=== PATIENT | female | born 1985 | race Two or more races ===

== ENCOUNTER 2023-03-17 18:29 | Emergency (ER) | payer SELFPAY ==
[2023-03-17 18:36] VITALS: BP 135/80; PULSE 83; RESP 18; TEMP 36.5; O2SAT 98; BMI 42.4
--- NOTE | 2023-03-17 18:40 | ED_ITS ---
HPI - General Adult General Time Seen by Provider: 18:40 Date Seen: 03/17/23 Chief complaint: Nausea/Vomiting Stated complaint: Vomiting, heartburn, possible medication reaction Time Seen by Provider: 03/17/23 18:38 History of Present Illness HPI narrative: 37-year-old female accompanied to the ER today by her for evaluation of ongoing nausea, heartburn, concern for dehydration. She is using wegovy weight loss. She does not have a diagnosis of diabetes. Yesterday she increased her dose from 0.5 mg up to 5 mg injected per week. Overnight last night she developed significant nausea and vomiting. She has had multiple episodes of nonbilious, nonbloody emesis since then. She had been seen in the [facility] emergency room in [place] this morning. She received IV Zofran which was ineffective and then was treated with a different IV antiemetic (possibly Compazine?) along with Benadryl and had improved nausea. She was able to discharge home. She also received 2 L of IV fluid while in the ER. She had labs that showed a white count of 13. Blood sugar was 198. Other electrolytes and LFTs were normal. She was given a prescription for Zofran ODT. Throughout the afternoon she has been using the Zofran but finding it to be ineffective. She has had multiple episodes of vomiting. Some of vomit has been orange 10s but no obvious blood. No diarrhea. No fever. She is having bad heartburn. She feels worn out and exhausted because of all the nausea. No fever. No other antecedent infection symptoms. Related Data Home Medications Medication Instructions Recorded Confirmed omeprazole 03/17/23 Previous Rx's Medication Instructions Recorded prochlorperazine maleate 10 mg 10 mg PO TID PRN #10 tabs 03/17/23 tablet (Compazine) Allergies Allergy/AdvReac Type Severity Reaction Status Date / Time No Known Drug Allergies Allergy Verified 03/17/23 21:00 PFSH PFS Social History Non-prescribed substance use: denies use Exam Narrative: Exam Narrative: Constitutional: Appears well-developed and well-nourished. Alert. Conversant, but uncomfortable. Overall, Non toxic. HENT: Head: Atraumatic. Nose: Nose normal. Mouth/Throat: Oral mucosa is clear and moist. no trismus. Pharynx normal. Tonsils symmetric. No tonsillar enlargement, erythema, or exudate. Eyes: Conjunctivae normal. EOM normal. Pupils equal, round, and reactive to light. No scleral icterus. Neck: Normal range of motion. Neck supple. No tracheal deviation present. Cardiovascular: Normal rate, regular rhythm. No gallop. No friction rub. No murmur heard. Symmetric radial artery pulses Pulmonary/Chest: Effort normal. No stridor. No respiratory distress. No wheezes. No rales. No rhonchi . No tenderness. Abdominal: Soft. Bowel sounds normal. No distension. No mass. Epigastric> right lower quadrant> left-sided abdominal tenderness. No CVA tenderness. No right upper quadrant tenderness. No Lyon sign. No rebound. No guarding. Musculoskeletal: RUE: Normal range of motion. No tenderness. No deformity LUE: Normal range of motion. No tenderness. No deformity RLE: Normal range of motion. No edema. No tenderness. No deformity LLE: Normal range of motion. No edema. No tenderness. No deformity Neurological: Alert and oriented to person, place, and time. Normal strength. CN II-VII intact. No sensory deficit. GCS eye subscore is 4. GCS verbal subscore is 5. GCS motor subscore is 6. Normal coordination Skin: Skin is warm and dry. No rash noted. No pallor. Normal capillary refill. Psychiatric: Normal mood. Normal affect. Const: Vital Signs, click to edit/add: Vital Signs - 24 hr 03/17/23 18:36 03/17/23 21:00 Temperature 97.7 F Pulse Rate [Right Pulse Oximeter] 83 Respiratory Rate 18 Blood Pressure [Ri ght Upper Arm] 135/80 Pulse Oximetry 98 99 Oxygen Delivery Me thod Room Air Course Course ED Course: Recheck-feeling better after antiemetic here in the ER. White count is elevated. Will order CT. Reevaluation(s) Reevaluation #1: Recheck-discussed CT results with patient and family. They are eager for discharge home. Vital Signs Vital signs: Initial Vital Signs Temperature 97.7 F 03/17/23 18:36 Temperature Source Temporal Artery Scan 03/17/23 18:36 Pulse Rate 83 03/17/23 18:36 Respiratory Rate 18 03/17/23 18:36 Blood Pressure 135/80 03/17/23 18:36 Blood Pressure Mean 98 03/17/23 18:36 Blood Pressure Position Sitting 03/17/23 18:36 Pulse Oximetry 98 03/17/23 18:36 Oxygen Delivery Method Room Air 03/17/23 18:36 Vital Signs Temperature 97.7 F 03/17/23 18:36 Pulse Rate 83 03/17/23 18:36 Respiratory Rate 18 03/17/23 18:36 Blood Pressure 135/80 03/17/23 18:36 Pulse Oximetry 98 03/17/23 18:36 Oxygen Delivery Method Room Air 03/17/23 18:36 Temperature 97.7 F 03/17/23 18:36 Pulse Rate 83 03/17/23 18:36 Respiratory Rate 18 03/17/23 18:36 Blood Pressure 135/80 03/17/23 18:36 Pulse Oximetry 99 03/17/23 21:00 Oxygen Delivery Method Room Air 03/17/23 18:36 Medical Decision Making MDM Narrative Medical decision making narrative: Presented to the Emergency Department with protracted nausea and vomiting, heartburn, abdominal pain. Symptoms started overnight last night after she increased her dose of Wegovy (which she started recently for weight loss). Sheet she had been seen in the [place] [address] ER in [place] earlier this morning and received 2 L IV fluid and Zofran. Labs in [place] [address] are not immediately [facility] here but were provided by text from the patient's mother. She had a white count of 13, blood sugar 198. Otherwise electrolytes well balanced. She came to the ER here in [place] this evening that she has uncontrolled heartburn and ongoing nausea. Also worsening generalized abdominal pain. differential diagnosis of abdominal pain includes: Appendicitis, Bowel Obstruction, Ulcer, Ischemia, Cholecystitis, Diverticulitis, Pancreatitis, UTI, kidney stone, Enteritis/Colitis, amongst many other etiologies. Labs show a rising white count up to 16.8. Blood sugars improved down to 136. Given rising white count ongoing symptoms, we decided to go ahead with imaging to make sure there was no acute surgical pathology going on here. Fortunately, other than hiatal hernia CT Imaging is noted to be normal. The exact etiology of the abdominal pain is not clear at this time. No life threatening cause or need for emergent surgery or hospital admission is detected today. The patient was advised that if symptoms do not completely resolve within another 12-24 hours re-evaluation with primary care or return to the ED is indicated. The patient also understands that if they worsen, they should return to the ER right away. I discussed the uncertainty about the diagnosis and answered the patient's questions. Abdominal pain return precautions discussed. She did have hyperglycemia at [facility] ER this morning. Sugar was 198. Here in the ER today sugars down to 136. No evidence for DKA. Doubt new onset diabetes. Recommend follow-up with primary care for repeat blood sugar and hemoglobin A1c check. Lab Data Labs: Lab Results 03/17/23 Range/Units 19:19 WBC 16.87 H (4.50-11.00) K/uL RBC 5.27 H (4.00-5.20) m/uL Hgb 15.3 (12.0-16.0) gm/dL Hct 46.3 (33.0-51.0) % MCV 88 (80-100) fL MCH 29 (26-34) pg MCHC 33 (32-36) gm/dL RDW Coeff of Iftikhar 13.0 (11.5-15.5) % Plt Count 333 (140-440) K/uL Neut % (Auto) 88.2 H (42.0-72.0) % Lymph % (Auto) 9.3 L (20-44) % [place] % (Auto) 2.2 (0.0-11.0) % Eos % (Auto) 0.0 (0.0-7.0) % Baso % (Auto) 0.1 (0.0-3.0) % Neut # (Auto) 14.90 H (1.7-7.0) K/uL Lymph # (Auto) 1.60 (0.90-2.90) K/uL [place] # (Auto) 0.40 (0.00-0.90) K/UL Eos # (Auto) 0.00 (0.00-0.50) K/uL Baso # (Auto) 0.00 (0.00-0.30) K/uL Abs Immat Gran (auto) 0.00 (0.00-0.30) K/uL Imm/Tot Granulo (auto) 0.2 % Sodium 140 (135-149) mmol/L Potassium 3.5 L (3.6-5.1) mmol/L Chloride 104 (96-114) mmol/L Carbon Dioxide 22 (20-32) mmol/L Anion Gap 14 (7-15) mEq/L BUN 14 (5-24) mg/dL Creatinine 0.7 (0.5-1.5) mg/dL Estimated Creat Clear 163.86 Estimated GFR 113 ml/min Glucose 132 H (60-115) mg/dL Lactate 2.2 H (0.5-1.9) mmol/L Calcium 9.8 (8.4-10.6) mg/dL Total Bilirubin 0.6 (0.1-1.5) mg/dL AST 37 H (12-35) U/L ALT 21 (4-35) U/L Alkaline Phosphatase 67 (40-150) U/L Total Protein 8.6 H (6.0-8.3) g/dL Albumin 5.0 (3.3-5.0) g/dL Lipase 141 (23-300) U/L HCG, Qual Negative (Negative) Imaging Data CT scan - abdomen: Attestation: I have reviewed the pertinent imaging results. Radiologist's impression: Fax report at 9:16 p.m. Impression: Moderate hiatal hernia. No acute intra-abdominal/pelvic abnormality. Beck Birch MD Discharge Plan Discharge Clinical Impression: Vomiting, Hernia, hiatal Patient Disposition: Home, Self-Care Condition: Stable Instructions: Hiatal Hernia (DC), Acute Nausea and Vomiting (ED), Acute Abdominal Pain (DC) Additional Instructions: As we discussed please come back to the ER right away if you have uncontrolled vomiting, high fever, worsening pain, or any problems. Use the nausea medicine as needed. We anticipate that your nausea should get better over the next few days. Talk to your doctor within 1 week for recheck. Ask them about your medication and determine whether not this is the proper medication for you. Prescriptions: New prochlorperazine maleate [Compazine] 10 mg tablet 10 mg PO TID PRNQty: 10 0RF No Action omeprazole Follow Up/Referrals: Joao Parada MD [Primary Care Provider] - Stand Alone Forms: [employer] Info Instructions
[2023-03-17 19:25] LABS: Lactate* 2.2 mmol/L (0.5-1.9)
[2023-03-17] MEDS: PANTOPRAZOLE SODIUM 40 MG INJ IVP (19:26)
[2023-03-17] MEDS: METOCLOPRAMIDE HCL 5 MG/ML INJ 10 MG IVP (19:26)
[2023-03-17 19:28] LABS: Basophils Percent Auto 0.1 % (0.0-3.0); Hematocrit 46.3 % (33.0-51.0); Hemoglobin* 15.3 gm/dL (12.0-16.0); Immature Granulocytes Pct Auto 0.2 %; Lymphocytes Percent Auto 9.3 % (20-44); Mean Corpuscular HGB Conc 33 gm/dL (32-36); Mean Corpuscular Hemoglobin 29 pg (26-34); Mean Corpuscular Volume 88 fL (80-100); Monocytes Percent Auto 2.2 % (0.0-11.0); Neutrophils Percent Auto 88.2 % (42.0-72.0); Platelet Count* 333 K/uL (140-440); Red Blood Count 5.27 m/uL (4.00-5.20); White Blood Count* 16.87 K/uL (4.50-11.00)
[2023-03-17 19:30] LABS: Slide Review Reflex No
[2023-03-17 19:41] LABS: Chloride* 104 mmol/L (96-114); Potassium* 3.5 mmol/L (3.6-5.1); Sodium* 140 mmol/L (135-149)
[2023-03-17 19:43] LABS: Alkaline Phosphatase* 67 U/L (40-150); Anion Gap 14 mEq/L (7-15); Aspartate Amino Transferase* 37 U/L (12-35); Bilirubin Total* 0.6 mg/dL (0.1-1.5); Carbon Dioxide* 22 mmol/L (20-32); Creatinine* 0.7 mg/dL (0.5-1.5); Est. Creatinine Clearance* 163.86; Estimated Glomerular Filt Rate 113 ml/min; Total Protein* 8.6 g/dL (6.0-8.3)
[2023-03-17 19:44] LABS: Alanine Aminotransferase* 21 U/L (4-35); Blood Urea Nitrogen* 14 mg/dL (5-24); Calcium* 9.8 mg/dL (8.4-10.6); Glucose* 132 mg/dL (60-115); Lipase* 141 U/L (23-300)
[2023-03-17 19:55] LABS: HCG Qualitative Serum* Negative (Negative)
--- NOTE | 2023-03-17 20:47 | CRLHL7_ITS ---
For Patients: As a result of the Century Cures Act, medical imaging exams and procedure reports are released immediately into your electronic medical record. You may view this report before your referring provider. If you have questions, please contact your health care provider. INDICATION: Abdominal pain, vomiting, leukocytosis. TECHNIQUE: CT abdomen and pelvis acquired with 103 cc Omnipaque 350 IV contrast. COMPARISON: None. FINDINGS: Lower chest: Scattered atelectasis. Moderate hiatal hernia. Liver: Unremarkable. Normal in size and attenuation. No suspicious masses. Gallbladder and bile ducts: Unremarkable. No stones or inflammation. No biliary dilatation. Pancreas: Unremarkable. No mass or inflammation. Spleen: Unremarkable. Normal in size. No masses. Adrenal glands: Unremarkable. No nodules. Kidneys: Tiny hypodensities, too small to characterize. No suspicious masses, stones, or hydronephrosis. GI tract: Unremarkable. Normal in caliber. No sign of mass or inflammation. Normal appendix. Vasculature: Abdominal aorta is normal in caliber. Mesenteric arteries are patent. Lymph nodes: No lymphadenopathy. Peritoneum/Abdominal Wall: Unremarkable. No sign of mass or infiltration. No free air or significant free fluid. Pelvis: Unremarkable. Bones: Unremarkable for age. IMPRESSION: Moderate hiatal hernia. No acute intra-abdominal/pelvic abnormality. Please note that all CT scans at this facility use dose modulation, iterative reconstruction, and/or weight-based dosing when appropriate to reduce radiation dose to as low as reasonably achievable. Dictated by Beck Greene MD @ 03/17/2023 9:14:22 PM (Electronically Signed)
[2023-03-17 21:00] VITALS: O2SAT 99
[2023-03-17] MEDS: MAG HYDROX/ALUMINUM HYD/SIMETH 30 ML ORAL.SUSP 15 ML PO (21:05)
[2023-03-17 21:41] VITALS: BP 122/70; PULSE 79; RESP 18; TEMP 36.8; O2SAT 99
[2023-03-17 21:42] VITALS: BP 122/70; PULSE 79; RESP 18; TEMP 36.8
== END 2023-03-17 21:46 | disposition home or self-care (01) ==
PROVIDERS: Emergency Provider Emergency Medicine; PCP Family Medicine
DX: K44.9 Diaphragmatic hernia without obstruction or gangrene (principal); R11.2 Nausea with vomiting, unspecified
CPT/HCPCS: 36415; 74177; 80053; 83605; 83690; 84703; 85025; 94761; 96374; 96375; 99284; A9270; C9113; J2765; Q9967